=== PATIENT | female | born 1945 | race Caucasian/White ===

== ENCOUNTER 2024-11-20 19:15 | Emergency (ER) | payer MEDICARE, OTHER ==
--- NOTE | 2024-11-20 19:17 | ERPHSYRPT ---
- History of Present Illness Time Seen by Provider: 11/20/24 19:16 Historian: patient Exam Limitations: no limitations Physician History: Patient presents to the emergency room with chest pain. She has had ongoing chest pain over the last week that has become more more constant. She has a history of 6 heart caths with 2 previous stenting's. Her benzol still operator is Dr. Sabillon. She has an upcoming stress test due to the chest pain. She reports the chest pain is more of a pressure, substernal in nature that radiates to the left arm. She reports some shortness of breath with the chest pain. No recent swelling noted. Daughter does note a recent cough as well. No fever or production with the cough. Location: substernal Chest Pain Radiation: arm Severity of Pain-Max: moderate Severity of Pain-Current: moderate Associated Symptoms: nausea, heartburn, cough, dizziness, back pain, No palpitations, No chills, No fever, No syncope Prior Chest Pain/Cardiac Workup: angina, cardiac cath, echocardiography Nitro Today/Relief: 0.4 mg x 2, mild relief Aspirin Treatment Today: 81 mg x 1, 81 mg x 2, provided at home, provided by ED Allergies/Adverse Reactions: atorvastatin [From Lipitor] Adverse Reaction (Verified 11/20/24 19:35) Muscle Aches - Review of Systems All Other Systems: Reviewed and Negative - Past Medical History Neurological History: No Pertinent History Cardiac History: Coronary Artery Disease, High Cholesterol, Hypertension Respiratory History: No Pertinent History Endocrine Medical History: No Pertinent History Other Medical History: PT PARTICIPATES IN CARDIAC REHAB 3X PER WEEK. PSH: CARDIAC STENTS (2-5 YEARS AGO), L SHOULDER RTC ( 16 YEARS AGO), B KNEE REPLACEMENTS, BUNIONECTOMY, HYSTERECTOMY, AND TOLSILECTOMY. - Nursing Vital Signs Nursing Vital Signs: Initial Vital Signs Pulse Rate 81 11/20/24 19:15 Respiratory Rate 22 11/20/24 19:15 Blood Pressure 163/59 11/20/24 19:15 O2 Sat by Pulse Oximetry 96 11/20/24 19:15 Pain Scale Pain Intensity 4 - Physical Exam General Appearance: no apparent distress Neck Exam: normal inspection, non-tender, supple, full range of motion Respiratory Exam: normal breath sounds, lungs clear, airway intact, No respiratory distress Cardiovascular Exam: regular rate/rhythm, capillary refill <2 sec, edema (trace b/l LE) Gastrointestinal/Abdomen Exam: soft, No tenderness SpO2 Interpretation: normal O2 Delivery: Room Air - Course Nursing assessment & vital signs reviewed: Yes EKG Interpreted by Me: RATE ([id number]), Sinus Rhythm, NORMAL AXIS, NORMAL INTERVALS, NORMAL QRS, Other (ventricular bigeminy) Ordered Tests: Active Orders 24 hr Category Date Time Status Drug Abuse Counselor STAT Care 11/20/24 19:29 Active EKG-ER Only STAT Care 11/20/24 19:28 Active IV Insertion STAT Care 11/20/24 19:28 Active Pulse Oximetry (ED) STAT Care 11/20/24 19:28 Active CHEST 1 VIEW (PORTABLE) Stat Exams 11/20/24 19:29 Taken CBC W DIFF Stat Lab 11/20/24 19:20 Completed CMP Stat Lab 11/20/24 19:20 Completed D-DIMER QUANTITATIVE Stat Lab 11/20/24 19:20 Completed MAG [MAGNESIUM] Stat Lab 11/20/24 19:20 Completed NT PRO BNPII Stat Lab 11/20/24 19:20 Completed TROPONIN Q2H Lab 11/20/24 19:20 Completed TROPONIN Q2H Lab 11/20/24 21:30 Ordered TROPONIN Q2H Lab 11/20/24 23:30 Ordered TSH, 3RD Generation Stat Lab 11/20/24 19:20 Completed Medication Summary Discontinued Medications Generic Name Dose Route Start Last Admin Trade Name Adanq PRN Reason Stop Dose Admin Aspirin 162 mg 11/20/24 19:28 11/20/24 19:39 Aspirin 81 Mg Tab.Chew PO 11/20/24 19:29 162 mg STAT ONE Administration Aspirin Confirm 11/20/24 19:36 Aspirin 81 Mg Tab.Chew Administered 11/20/24 19:37 Dose 162 mg .ROUTE .STK-MED ONE Lab/Rad Data: Laboratory Result Diagrams 11/20/24 19:20 11/20/24 19:20 Laboratory Results 11/20/24 11/20/24 11/20/24 Range/Units 19:20 19:20 19:20 WBC (3.98-10.04) x10^3/uL RBC (3.93-5.22) x10^6/uL Hgb (11.2-15.7) g/dL Hct (34.1-44.9) % MCV (79.4-94.8) fL MCH (25.6-32.2) pg MCHC (32.2-35.5) g/dL RDW (11.7-14.4) % Plt Count (182-369) x10^3/uL MPV (9.4-12.3) fL Gran % (34.0-71.1) % Immature Gran % (Auto) (0.001-0.429) % Nucleat RBC Rel Count (0.00-0.2) % Eos # (Auto) (0.04-0.36) x10^3/uL Immature Gran # (Auto) (0.001-0.031) x10^3u/L Absolute Lymphs (auto) (1.18-3.74) x10^3/uL Absolute Monos (auto) (0.24-0.86) x10^3/uL Absolute Nucleated RBC (0.00-0.012) x10^3u/L Lymphocytes % (19.3-51.7) % Monocytes % (4.7-12.5) % Eosinophils % (0.7-5.8) % Basophils % (0.1-1.2) % Absolute Granulocytes (1.56-6.13) x10^3/uL Basophils # (0.01-0.08) x10^3/uL D-Dimer 0.25 (0.0-0.50) mg/L Sodium 139 (135-145) mmol/L Potassium 4.3 (3.5-5.1) mmol/L Chloride 108 H (98-107) mmol/L Carbon Dioxide 26 (22-30) mmol/L Anion Gap 8.9 (5-15) MEQ/L BUN 17 (7-17) mg/dL Creatinine 1.29 H (0.52-1.04) mg/dL Estimated GFR 42.0 ML/MIN Glucose 103 (74-106) mg/dL Calcium 9.8 (8.4-10.2) mg/dL Magnesium 2.0 (1.6-2.3) mg/dL Total Bilirubin 0.20 (0.2-1.3) mg/dL AST 23 (14-36) U/L ALT 15 (0-35) U/L Alkaline Phosphatase 74 (38-126) U/L Troponin I < 0.012 (0.000-0.033) ng/mL NT-Pro-B Natriuret Pep 239 (<300) pg/mL Serum Total Protein 6.2 L (6.3-8.2) g/dL Albumin 3.9 (3.5-5.0) g/dL TSH 3rd Generation 4.737 H (0.470-4.680) mIU/L 11/20/24 Range/Units 19:20 WBC 8.2 (3.98-10.04) x10^3/uL RBC 3.89 L (3.93-5.22) x10^6/uL Hgb 12.2 (11.2-15.7) g/dL Hct 36.4 (34.1-44.9) % MCV 93.6 (79.4-94.8) fL MCH 31.4 (25.6-32.2) pg MCHC 33.5 (32.2-35.5) g/dL RDW 14.0 (11.7-14.4) % Plt Count 173 L (182-369) x10^3/uL MPV 10.3 (9.4-12.3) fL Gran % 49.2 (34.0-71.1) % Immature Gran % (Auto) 0.4 (0.001-0.429) % Nucleat RBC Rel Count 0.0 (0.00-0.2) % Eos # (Auto) 0.28 (0.04-0.36) x10^3/uL Immature Gran # (Auto) 0.03 (0.001-0.031) x10^3u/L Absolute Lymphs (auto) 2.92 (1.18-3.74) x10^3/uL Absolute Monos (auto) 0.89 H (0.24-0.86) x10^3/uL Absolute Nucleated RBC 0.00 (0.00-0.012) x10^3u/L Lymphocytes % 35.6 (19.3-51.7) % Monocytes % 10.8 (4.7-12.5) % Eosinophils % 3.4 (0.7-5.8) % Basophils % 0.6 (0.1-1.2) % Absolute Granulocytes 4.04 (1.56-6.13) x10^3/uL Basophils # 0.05 (0.01-0.08) x10^3/uL D-Dimer (0.0-0.50) mg/L Sodium (135-145) mmol/L Potassium (3.5-5.1) mmol/L Chloride (98-107) mmol/L Carbon Dioxide (22-30) mmol/L Anion Gap (5-15) MEQ/L BUN (7-17) mg/dL Creatinine (0.52-1.04) mg/dL Estimated GFR ML/MIN Glucose (74-106) mg/dL Calcium (8.4-10.2) mg/dL Magnesium (1.6-2.3) mg/dL Total Bilirubin (0.2-1.3) mg/dL AST (14-36) U/L ALT (0-35) U/L Alkaline Phosphatase (38-126) U/L Troponin I (0.000-0.033) ng/mL NT-Pro-B Natriuret Pep (<300) pg/mL Serum Total Protein (6.3-8.2) g/dL Albumin (3.5-5.0) g/dL TSH 3rd Generation (0.470-4.680) mIU/L - Progress Progress: improved Air Movement: good Progress Note: This patient presents with chest pain, with a strong PMH. No evidence of volume overload or shock on exam. EKG without signs of active ischemia. EKG without evidence of STEMI. Low suspicion for acute PE, pneumothorax, thoracic aortic dissection, cardiac effusion / tamponade. Overall, ACS is being considered given higher risk features, history & physical. HEART score: greater than 4. Patient will require admission for inpatient risk stratification and possible provocative testing. Her benzol still operator is Dr. Sabillon who is at [facility]. We will transfer due to her strong cardiac hx in case geophysical laboratory director is needed. Plan: policewoman, EKG, troponins, CXR, ASA, pain control. Dr. Clay accepts for admission at 1953, Dr. Sabillon to consult. Blood Culture(s) Obtained: No Antibiotics given: No Medical Desision Making - Discussion of managment Care discussed with:: specialist Reviewed:: Test results, Need for additional workup Agreed on:: Treatment plan, place in obs Will see patient: in hospital - Diagnostic Testing Diagnostic test were ordered, analyzed, and reviewed by me: Yes Radiological Interpretation: Interpreted by me - Risk of complications The pt has a high risk of morbidity or mortality based on: Decision regarding hospitilization or escalation of hosp level of care - Departure Departure Disposition: Transfer ([facility]) Clinical Impression: Chest pain Condition: Stable Critical Care Time: No Referrals: CHARLOTTE SABILLON MD [Primary Care Provider, CARDIOLOGY] - Follow up/PCP as directed Instructions: Chest Pain (DC)
[2024-11-20 19:21] VITALS: TEMP 98.2
[2024-11-20] MEDS ORDERED: BABY ASPIRIN 81 MG CHEW ONE (19:36)
[2024-11-20 19:38] LABS: BASOPHIL % 0.6 % (0.1-1.2); Basophil (Absolute #) 0.05 x10^3/uL (0.01-0.08); Eosinophil (Absolute #) 0.28 x10^3/uL (0.04-0.36); Hematocrit 36.4 % (34.1-44.9); Hemoglobin 12.2 g/dL (11.2-15.7); IMMATURE GRAN # 0.03 x10^3u/L (0.001-0.031); IMMATURE GRAN % 0.4 % (0.001-0.429); Lymphocyte (Absolute #) 2.92 x10^3/uL (1.18-3.74); Mean Corpuscular Hemoglobin 31.4 pg (25.6-32.2); Mean Corpuscular Hgb Concent. 33.5 g/dL (32.2-35.5); Monocyte (Absolute #) 0.89 x10^3/uL (0.24-0.86); NUCLEATED RBC # 0.00 x10^3u/L (0.00-0.012); NUCLEATED RBC % 0.0 % (0.00-0.2); Platelet Count 173 x10^3/uL (182-369); Red Blood Count 3.89 x10^6/uL (3.93-5.22); White Blood Count 8.2 x10^3/uL (3.98-10.04)
[2024-11-20] MEDS: BABY ASPIRIN 81 MG CHEW PO ONE (19:39)
[2024-11-20 19:55] LABS: NT PRO BNPII 239 pg/mL (<300); TROPONIN < 0.012 ng/mL (0.000-0.033)
[2024-11-20 20:14] LABS: Calcium 9.8 mg/dL (8.4-10.2); Carbon Dioxide 26.0 mmol/L (22-30); Creatinine 1 1.29 mg/dL (0.52-1.04); EST GLOMERULAR FILTRATION RATE 42.0 ML/MIN; Glucose 103.0 mg/dL (74-106); Potassium 4.3 mmol/L (3.5-5.1); SGOT/AST 23.0 U/L (14-36); SGPT/ALT 15.0 U/L (0-35); Total Protein 6.2 g/dL (6.3-8.2)
[2024-11-20 23:23] VITALS: BP 128/70; PULSE 90; RESP 16; O2SAT 94
--- NOTE | 2024-11-21 07:49 | XRAY ---
Indication: Chest pain. Comparison: April 09, 2008 Portable chest remains inflated and clear. Heart not enlarged with new coronary stent. Bony thorax intact again with osteopenia, mild degenerative changes, and left shoulder surgery. Impression: Nonacute chest with chronic features.
== END 2024-11-20 23:20 | disposition short-term general hospital (02) ==
LOC: ED 19:15
DX: R07.9 Chest pain, unspecified (principal); R06.02 Shortness of breath